=== PATIENT | female | born 1995 | race Caucasian/White ===

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

== ENCOUNTER 2017-12-19 19:03 | Emergency (ER) | payer OTHER ==
[~2017-12-19] VITALS: Ht 165.1 cm; Wt 74.8 kg
--- NOTE | ~2017-12-19 | EKG ---
[place], [place] ELECTROCARDIOGRAM REPORT NAME: VON SAN UNIT #: [id number] ROOM: DOCTOR: EPIPHANY DRAFT REPORT BIRTHDATE: [birth year] [facility] Test Date: 2017-12-19 Test Time: 19:48:58 Pat Name: VON SAN Department: Room: Gender: F Accounting Practice Manager: Anne Marie Sheriff : 1995 Requested By: MARCIO WHITTAKER PA-C Order Number: [id number] Reading MD: Nam Francois MD Measurements Intervals [place] Rate: 80 P: 44 ID: [id number] QRS: 64 QRSD: 81 T: 47 QT: 369 QTc: 426 Interpretive Statements Sinus rhythm Baseline wander in lead(s) V1,V3,V4,V5 Electronically Signed On 12-20-2017 13:54:59 PDT by Nam Francois MD CM:EKGRPT:ELECTROCARDIOGRAM REPORT [id number] MARCIO WHITTAKER PA-C EPIPHANY DRAFT REPORT MARCIO WHITTAKER PA-C
[~2017-12-19 19:03] MED LIST changes: +AMOXICILLIN250 MG PO
[2017-12-19 19:36] LABS: BILIRUBIN NEGATIVE (NEGATIVE); BLOOD 2+ (NEGATIVE); CLARITY CLEAR (CLEAR); COLOR YELLOW (YELLOW); GLUCOSE NEGATIVE (NEGATIVE); KETONE NEGATIVE (NEGATIVE); LEUKO ESTERASE NEGATIVE (NEGATIVE); NITRITE NEGATIVE (NEGATIVE); PH 8.5 (5.0-9.0); UROBILINOGEN 0.2 E.U./dl (0.2-1.0)
[2017-12-19 19:43] LABS: BASO # 0.1 10*3/uL (0.0-0.1); BASO % 0.8 % (0.0-1.0); EOS # 0.3 10*3/uL (0.0-0.4); HEMATOCRIT 42.2 % (37.0-47.0); HEMOGLOBIN 14.2 g/dl (12.0-16.0); LYMPH # 2.4 10*3/uL (1.3-4.4); LYMPH % 36.1 % (27.0-41.0); MEAN CELL VOLUME 87.6 fl (81.0-99.0); MEAN CORPUSCULAR HGB 29.5 pg (27.0-31.0); MEAN CORPUSCULAR HGB CONC 33.6 g/dl (33.0-37.0); MEAN PLATELET VOLUME 10.7 fl (9.6-12.3); MONO # 0.6 10*3/uL (0.1-1.0); MONO % 8.7 % (3.0-9.0); NEUT # 3.3 10*3/uL (2.3-7.9); NEUT % 50.2 % (47.0-73.0); PLATELET COUNT AUTOMATED 254 10*3/uL (130-400); RED BLOOD COUNT 4.82 10*6/uL (4.10-5.10); RED CELL DISTRI WIDTH 13.6 % (0-14.5); WHITE BLOOD COUNT 6.6 10*3/uL (4.8-10.8)
[2017-12-19 19:44] LABS: BACTERIA TRACE; RBC 21-30 rbc/hpf (0-2); WBC 0-2 wbc/hpf (0-5)
[2017-12-19 19:55] LABS: ACT PARTIAL THROMBO TIME 25.1 SECONDS (20.8-31.5); INTERNATIONAL NORM RATIO 1.1 (2.0-3.5)
[2017-12-19 20:03] LABS: ALBUMIN 4.3 gm/dl (3.1-4.5); ALKALINE PHOSPHATASE 61 U/L (45-117); BUN 10 mg/dl (7-24); CHLORIDE 108 mmol/L (98-107); SGOT/AST 17 IU/L (3-35); SGPT/ALT 23 U/L (12-78); SODIUM 139 mmol/L (136-145); TOTAL PROTEIN 7.6 gm/dL (6.4-8.2)
[2017-12-19 20:04] LABS: TROPONIN I < 0.015 ng/ml (<0.045)
[2017-12-19] MEDS ORDERED: PROAIR HFA8.5 GM INH (20:33)
== END 2017-12-19 20:34 | disposition home or self-care (01) ==
LOC: ED 19:03
PROVIDERS: Physician Assistant
DX: R07.89 Other chest pain (principal); R42 Dizziness and giddiness; F41.9 Anxiety disorder, unspecified; F17.200 Nicotine dependence, unspecified, uncomplicated; Z88.1 Allergy status to other antibiotic agents

== ENCOUNTER 2018-01-01 07:49 | Emergency (ER) | payer OTHER ==
[~2018-01-01] VITALS: Ht 160 cm; Wt 68.9 kg
[~2018-01-01 07:49] MED LIST changes: +PROAIR HFA8.5 GM INH
[2018-01-01] MEDS ORDERED: PREDNISONE50 MG PO (08:07)
[2018-01-01] MEDS ORDERED: DOXYCYCLINE100 M3 PO (08:07)
== END 2018-01-01 08:45 | disposition home or self-care (01) ==
LOC: ED 07:49
DX: L29.8 Other pruritus (principal); T36.3X5A Adverse effect of macrolides, initial encounter; J20.9 Acute bronchitis, unspecified; L50.9 Urticaria, unspecified; Z88.1 Allergy status to other antibiotic agents; Y92.89 Other specified places as the place of occurrence of the external cause